=== PATIENT | female | born 1965 | race Caucasian/White ===

== ENCOUNTER → 2016-12-20 | Outpatient (CLI) | payer OTHER ==
[2016-12-20 11:14] LABS: ABSOLUTE NEUTROPHILS 3.3 thou/uL (1.4-8.2); BASOPHILS 0.7 % (0.0-2.0); EOSINOPHILS 8.5 % (0.0-3.0); HEMATOCRIT 40.3 % (37.0-47.0); HEMOGLOBIN 13.5 gm/dL (12.0-15.0); LYMPHOCYTES 27.4 % (24.0-44.0); MCH 34.2 pg (26.0-34.0); MCHC 33.5 g/dL (28.0-37.0); MCV 102.2 fL (80.0-100.0); MONOCYTES 7.1 % (1.0-8.0); PLATELET COUNT 189 thou/uL (150-400); POLYS 56.3 % (36.0-66.0); RBC 3.94 mil/uL (4.20-5.00); WBC 5.8 thou/uL (4.0-11.0)
[2016-12-20 11:16] LABS: URINE BILIRUBIN NEGATIVE (Negative); URINE BLOOD TRACE (Negative); URINE COLOR YELLOW; URINE GLUCOSE-RANDOM* NEGATIVE (Negative); URINE KETONES NEGATIVE (Negative); URINE NITRITE NEGATIVE (Negative); URINE PROTEIN (DIPSTICK) NEGATIVE (Negative); URINE UROBILINOGEN 0.2 E.U./dl (0.2-1.0)
[2016-12-20 11:20] LABS: MANUAL DIFF NO
[2016-12-20 11:28] LABS: ALBUMIN 4.1 g/dL (3.4-5.0); ALKALINE PHOSPHATASE 52 U/L (46-116); ANION GAP 9 mmol/L (7-16); BUN 20 mg/dL (7-18); CALCIUM 9.1 mg/dL (8.5-10.1); CHLORIDE 106 mmol/L (98-107); CHOLESTEROL 134 mg/dL (<200); CO2 28 mmol/L (21-32); CREATININE 0.8 mg/dL (0.6-1.0); GLUCOSE 97 mg/dL (74-106); HDL CHOLESTEROL 63 mg/dL (>40); LDL CHOLESTEROL 51 mg/dL (<100); SGOT 37 U/L (15-37); SGPT 38 U/L (30-65); SODIUM 143 mmol/L (136-145); TC:HDL 2.1 Ratio (Not establshd); TOTAL BILIRUBIN 0.2 mg/dL (<0.1-1.0); TOTAL PROTEIN 7.1 g/dL (6.4-8.2); TRIGLYCERIDE 100 mg/dL (<150); VLDL 20 mg/dL (<40)
[2016-12-20 11:57] LABS: TSH 0.053 uIU/mL (0.358-3.740)
[2016-12-20 16:07] LABS: CORTISOL RANDOM 6.7 ug/dL (()); DHEA-S 79.5 ug/dL (41.2-243.7); FREE T4 0.94 ng/dL (0.82-1.77); FSH 25.9 mIU/mL (()); PROGESTERONE 0.6 ng/mL (()); TESTOSTERONE* 278 ng/dL (8-48)
[2016-12-20 18:11] LABS: FREE T3 3.3 pg/mL (2.0-4.4)
[2016-12-20 23:12] LABS: 25-HYDROXY TOTAL 54.9 ng/mL (30.0-100.0)
[2016-12-21 03:09] LABS: ESTIMATED AVERAGE GLUCOSE 85 mg/dL (()); GLYCOHEMOGLOBIN (HGB A1C) 4.6 % (4.8-5.6)
== END ==
LOC: LABMALL 07:43
PROVIDERS: Family Medicine
DX: E55.9 Vitamin D deficiency, unspecified (principal); E28.39 Other primary ovarian failure; E34.9 Endocrine disorder, unspecified; E03.9 Hypothyroidism, unspecified; E27.40 Unspecified adrenocortical insufficiency; R53.83 Other fatigue; E53.8 Deficiency of other specified B group vitamins

== ENCOUNTER → 2017-01-01 | Outpatient (CLI) | payer OTHER | LOC: MRI 04:48 | DX: G43.909 Migraine, unspecified, not intractable, without status migrainosus (principal) ==